=== PATIENT | male | born 1980 | race Caucasian/White ===

== ENCOUNTER 2016-12-12 15:25 | Emergency (ER) | payer SELFPAY ==
[2016-12-12 15:28] VITALS: BP 192/90; PULSE 71; RESP 14; TEMP 98.1; O2SAT 96
--- NOTE | 2016-12-12 15:34 | PD ---
Physical Exam Time Seen by Provider: 15:32 Narrative 36yo M c/o left eye pain x 1 week after sanding and getting something in his eye. L eye is red, swollen, and w/ purulent drainage in triage. Patient seen in triage. VS reviewed. Patient awaiting bed placement. Data Data Last Documented VS Vital Signs Date Time Temp Pulse Resp B/P Pulse Ox O2 Delivery O2 Flow Rate FiO2 12/12/16 15:28 98.1 71 14 192/90 96 MDM Supervised Visit with RICHARD: Eve Singh Dec 12, 2016 15:34
[2016-12-12] MEDS ORDERED: FLUORESCEIN SOD 1 MG STRIP EACH EYE ONE (21:00)
[2016-12-12] MEDS ORDERED: PROPARACAINE HCL 0.5% OPHT SOLN 15 ML BTL EACH EYE ONE (21:00)
[2016-12-12] MEDS ORDERED: TRIMSOL EACH EYE (21:20)
--- NOTE | 2016-12-12 21:20 | PD ---
HPI Chief Complaint: Foreign Body Time Seen by Provider: 21:04 Travel History International Travel<30 days: No Contact w/Intl Traveler<30days: No Traveled to known affect area: No History of Present Illness HPI Patient is a 36-year-old male presents emergency department for evaluation of bilateral eye swelling, left greater than the right. Patient states that been going on for the past 8 days. Patient states that initially he was using a power tool thinks he got some sawdust in his eye. He also tells me that he found her course in the backyard and some of hi friends said that she might have developed an infection from the [place]. States symptoms been gradually worsening denies any earaches nose running sore throat cough or congestion. PFSH Past Medical History Medical History: Denies Significant Hx Tetanus Vaccination: Unknown Influenza Vaccination: No Past Surgical History Surgical History: No Previous Surgery Social History Alcohol Use: No Tobacco Use: No Substance Use: No Allergies-Medications (Allergen,Severity, Reaction): Coded Allergies: No Known Allergies (Unverified , 12/12/16) Reported Meds & Prescriptions Reported Meds & Active Scripts Active Polymyxin B-Trimethoprim Opth Drops 10,000-0.1 Unit/Ml-% Soln 1 Drop EACH EYE Q6HR 14 Days Review of Systems Except as stated in HPI: all other systems reviewed are Neg Physical Exam Narrative GENERAL: Well-nourished, well-developed patient. SKIN: Focused skin assessment warm/dry. HEAD: Normocephalic. EYES: No scleral icterus. Patient has a pterygium of the left eye, there is also significant chemosis and injection of the sclera of the left eye, no discharge noted. No cell or flare no hypopyon, there is also some injection of the right eye. I checked movements are intact. No cellulitis of the periorbital skin. NECK: Supple, trachea midline. No JVD or lymphadenopathy. CARDIOVASCULAR: Regular rate and rhythm without murmurs, gallops, or rubs. RESPIRATORY: Breath sounds equal bilaterally. No accessory muscle use. GASTROINTESTINAL: Abdomen soft, non-tender, nondistended. MUSCULOSKELETAL: No cyanosis, or edema. BACK: Nontender without obvious deformity. No CVA tenderness. Data Data Last Documented VS Vital Signs Date Time Temp Pulse Resp B/P Pulse Ox O2 Delivery O2 Flow Rate FiO2 8/2/17 15:28 98.1 71 14 192/90 96 Orders Proparacaine 0.5% Opth Soln (Alcaine 0.5 (12/12/16 21:00) Fluorescein Strip ([id number] A.T.) (12/12/16 21:00) [facility] Medical Decision Making Medical Screen Exam Complete: Yes Emergency Medical Condition: Yes Differential Diagnosis Viral conjunctivitis, chemical conjunctivitis, bacterial conjunctivitis, pterygium. Narrative Course Patient roomed emergency department, will be placed on antibiotic drops, discussed this pterygium which is approaching but not directly overriding the pupil at this time. 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 He verbalized understanding and agreement. He is stable for discharge this time Diagnosis Primary Impression: Conjunctivitis Referrals: Joselin Gaytan MD Med/Other Pt SpecificInfo: Prescription(s) given Scripts Polymyxin B-Trimethoprim Opth Drops 10,000-0.1 Unit/Ml-% Soln1 Drop EACH EYE Q6HR 14 Days Ref 0 Prov:Yimi Ryder MD 12/12/16 Disposition: 01 DISCHARGE HOME Condition: Stable Yimi Ryder MD Dec 12, 2016 21:20
== END 2016-12-12 21:35 | disposition home or self-care (01) ==
LOC: NEPD 15:25
DX: H10.9 Unspecified conjunctivitis (principal)
CPT/HCPCS: 99283